=== PATIENT | male | born 1950 | race Caucasian/White ===

== ENCOUNTER 2024-06-13 07:26 | Inpatient (IN) | payer OTHER ==
[~2024-06-13] VITALS: Ht 172.7 cm; Wt 61.8 kg
[2024-06-13] VITALS (22 sets, daily range): BP systolic 92–177; BP diastolic 61–99; TEMP 97.9–99.6; O2SAT 97–100
[2024-06-13 08:29] LABS: BASOPHILS # (AUTO) 0.1 K/uL (0.0-0.2); BASOPHILS % (AUTO) 0.6 % (0.0-2.0); EOSINOPHILS % (AUTO) 0.1 % (0.0-6.0); HEMATOCRIT 41 % (39-51); HEMOGLOBIN 13.9 g/dL (13.5-17.5); LYMPHOCYTES % (AUTO) 9.5 % (20.0-44.0); MEAN CORPUSCULAR HEMOGLOBIN 32 PG (26.0-33.0); MEAN CORPUSCULAR HGB CONC 34 g/dl (31.0-36.0); MEAN CORPUSCULAR VOLUME 95 fL (80-96); MONOCYTES # (AUTO) 0.6 K/uL (0.1-1.30); MONOCYTES % (AUTO) 5.8 % (2.0-12.0); PLATELET COUNT (AUTO) 240 K/uL (150-450); RED BLOOD CELL COUNT(AUTO) 4.33 MIL/uL (4.5-6.0); WHITE BLOOD COUNT (AUTO) 10.8 K/uL (4.3-11.0)
[2024-06-13] MEDS: hydrALAZINE HCL IV 20 MG VIAL IV ONE ×2 (08:29→09:01)
[2024-06-13 08:45] LABS: CARBON DIOXIDE 27 mmol/L (21-32); CHLORIDE 110 mmol/L (98-107); CREATININE 2.9 mg/dL (0.6-1.3); GLUCOSE 123 mg/dL (74-106); POTASSIUM 3.8 mmol/L (3.5-5.1); SODIUM SERUM 150 mmol/L (136-145); UREA NITROGEN, BLOOD 41 mg/dL (7-18)
[2024-06-13 08:57] LABS: NT-PRO BNP 11038 pg/mL (0-125)
[2024-06-13] MEDS ORDERED: NICARDIPINE HCL 40 MG in IV NS 0.9% 184 ML IV PRN (09:00)
[2024-06-13] MEDS ORDERED: ENOXAPARIN SODIUM 80 MG/0.8 ML DISP.SYRIN SQ ONE (09:03)
[2024-06-13] MEDS: ENOXAPARIN SODIUM 60 MG/0.6 ML DISP.SYRIN SQ ONE (09:05)
[2024-06-13] MEDS: NICARDIPINE HCL 40 MG in IV NS 0.9% 184 ML IV PRN (09:45)
[2024-06-13] MEDS ORDERED: HYDR100T27 GT (10:59)
[2024-06-13] MEDS ORDERED: CHOL100043 GT (10:59)
[2024-06-13] MEDS ORDERED: TRIA60LO8 TP (10:59)
[2024-06-13] MEDS ORDERED: CLON0.2T GT (10:59)
[2024-06-13] MEDS ORDERED: ACET-637 GT (10:59)
[2024-06-13] MEDS ORDERED: LABE200T5 GT (10:59)
[2024-06-13] MEDS ORDERED: MINO2.5T2 GT (10:59)
[2024-06-13] MEDS ORDERED: MAGN400O6 GT (10:59)
[2024-06-13] MEDS ORDERED: AMLO-213 GT (10:59)
[2024-06-13] MEDS ORDERED: FAMO20TA8 GT (10:59)
[2024-06-13] MEDS ORDERED: DOCU-141 GT (10:59)
[2024-06-13] MEDS ORDERED: BISA10SU11 RC (10:59)
[2024-06-13] MEDS ORDERED: NYST30CR2 TP (10:59)
[2024-06-13] MEDS ORDERED: CRAN300T GT (10:59)
[2024-06-13] MEDS ORDERED: ONDA-97 GT (10:59)
[2024-06-13] MEDS ORDERED: NA P133E RC (10:59)
[2024-06-13] MEDS ORDERED: LEVE500S9 GT (10:59)
[2024-06-13] MEDS ORDERED: NUT.237L67 GT (10:59)
[2024-06-13] MEDS ORDERED: ACET325T53 GT (10:59)
[2024-06-13] MEDS ORDERED: CLON0.1T GT (10:59)
[2024-06-13] MEDS ORDERED: MAGNESIUM HYDROXIDE 30 ML UDC PO PRN (11:00)
[2024-06-13] MEDS ORDERED: ENOXAPARIN SODIUM 30 MG/0.3 ML DISP.SYRIN SQ SCH (11:00)
[2024-06-13] MEDS ORDERED: ZOLPIDEM TARTRATE 5 MG TABLET PO PRN (11:00)
[2024-06-13] MEDS ORDERED: Z GUARD REMEDY 4 OZ OINT TP PRN (11:00)
[2024-06-13] MEDS ORDERED: MAG HYDROX/AL HYDROX/SIMETH 30 ML UDC PO PRN (11:00)
[2024-06-13] MEDS ORDERED: ONDANSETRON HCL/PF 4 MG/2 ML VIAL IVP PRN (11:00)
[2024-06-13] MEDS ORDERED: HYDROCODONE/APAP 5/325MG TABLET GT PRN (11:00)
[2024-06-13] MEDS ORDERED: ACETAMINOPHEN 325 MG TABLET PO PRN (11:00)
[2024-06-13] MEDS: MINOXIDIL (2.5MG) 2.5 MG TABLET GT SCH (12:00)
[2024-06-13] MEDS ORDERED: NA PHOS,M-B/NA PHOS,DI-BA 1 EA ENEMA RC PRN (12:00)
[2024-06-13] MEDS ORDERED: ACETAMINOPHEN ES 500 MG TABLET GT PRN (12:00)
[2024-06-13] MEDS ORDERED: BISACODYL SUPP (10 MG) 10 MG/SUPP.RECT SUPP.RECT RC PRN (12:00)
[2024-06-13] MEDS ORDERED: ACETAMINOPHEN 325 MG TABLET MC PRN (12:00)
[2024-06-13] MEDS: AMLODIPINE BESYLATE 10 MG TABLET GT SCH (12:00)
[2024-06-13] MEDS: hydrALAZINE HCL 50 MG TABLET GT SCH (13:00)
[2024-06-13] MEDS: LABETALOL HCL (100MG) 100 MG TABLET PO SCH (13:00)
[2024-06-13] MEDS: CLONIDINE HCL 0.1 MG TABLET GT SCH (13:00)
[2024-06-13] MEDS ORDERED: NEPRO VAN 237 ML CAN GT SCH (13:00)
[2024-06-13] MEDS: NEPRO VAN 237 ML CAN PO SCH (17:00)
[2024-06-13] MEDS: CHOLECALCIFEROL 1,000 UNIT TABLET (VIT D3) GT SCH (17:09)
[2024-06-13] MEDS: DOCUSATE SODIUM 100 MG CAPSULE PO SCH (17:09)
[2024-06-13] MEDS: CLONIDINE HCL 0.1 MG TABLET GT PRN (17:10)
[2024-06-13] MEDS: NEPRO 1,000 ML BOTTLE GT PRN (19:19)
[2024-06-13] MEDS: LEVETIRACETAM (250 MG) 250 MG TABLET GT SCH (21:03)
[2024-06-13] MEDS: TRIAMCINOLONE 0.1% LOTION 60 ML BOTTLE TP SCH (21:34)
[2024-06-13] MEDS: NYSTATIN CREAM 15 GM TUBE TP SCH (21:34)
[2024-06-14] VITALS: BP 133/81; TEMP 98.6; O2SAT 98
[2024-06-14 04:00] VITALS: BP 148/88; TEMP 98.4; O2SAT 99
[2024-06-14 07:14] LABS: BASOPHILS % (AUTO) 0.3 % (0.0-2.0); EOSINOPHILS # (AUTO) 0.3 K/uL (0.0-0.7); EOSINOPHILS % (AUTO) 3.3 % (0.0-6.0); HEMATOCRIT 33 % (39-51); HEMOGLOBIN 11.3 g/dL (13.5-17.5); LYMPHOCYTES # (AUTO) 1.3 K/uL (0.8-4.8); LYMPHOCYTES % (AUTO) 14.8 % (20.0-44.0); MEAN CORPUSCULAR HEMOGLOBIN 32 PG (26.0-33.0); MEAN CORPUSCULAR HGB CONC 34 g/dl (31.0-36.0); MEAN CORPUSCULAR VOLUME 95 fL (80-96); MONOCYTES # (AUTO) 0.6 K/uL (0.1-1.30); MONOCYTES % (AUTO) 7.1 % (2.0-12.0); NEUTROPHILS # (AUTO) 6.4 K/uL (1.8-8.9); NEUTROPHILS % (AUTO) 74.5 % (43.0-81.0); PLATELET COUNT (AUTO) 181 K/uL (150-450); RED BLOOD CELL COUNT(AUTO) 3.49 MIL/uL (4.5-6.0); RED CELL DISTRIBUTION WIDTH 13.8 % (11.5-15.0); WHITE BLOOD COUNT (AUTO) 8.6 K/uL (4.3-11.0)
[2024-06-14 07:24] LABS: CALCIUM, SERUM 8.4 mg/dL (8.5-10.1); CREATININE 2.8 mg/dL (0.6-1.3); MAGNESIUM 2.6 mg/dL (1.8-2.4); PHOSPHORUS 3.5 mg/dL (2.5-4.9); POTASSIUM 3.4 mmol/L (3.5-5.1)
[2024-06-14 08:00] VITALS: BP 166/91; TEMP 98.6; O2SAT 99
[2024-06-14] MEDS: FREE WATER VIA TUBE FEEDING GT SCH (08:20)
[2024-06-14] MEDS: ENOXAPARIN SODIUM 30 MG/0.3 ML DISP.SYRIN SQ SCH (08:31)
[2024-06-14] MEDS: hydrALAZINE HCL 50 MG TABLET PO SCH (09:43)
[2024-06-14 09:49] LABS: IRON, SERUM 39 ug/dl (50-175); TOTAL IRON BINDING CAPACITY 183 ug/dl (250-450)
[2024-06-14 10:06] LABS: FERRITIN 97 ng/mL (8-388)
[2024-06-14] MEDS: NITROGLYCERIN 30 GM TUBE TP SCH (10:06)
[2024-06-14 16:00] VITALS: BP 150/86; TEMP 98.2; O2SAT 99
[2024-06-14] MEDS: POTASSIUM CHLORIDE 20 MEQ POWDER PACKET GT ONE (16:15)
[2024-06-15 01:38] VITALS: BP 174/99; TEMP 99.3; O2SAT 99
[2024-06-15 07:19] LABS: BASOPHILS % (AUTO) 0.3 % (0.0-2.0); EOSINOPHILS # (AUTO) 0.3 K/uL (0.0-0.7); EOSINOPHILS % (AUTO) 3.3 % (0.0-6.0); HEMATOCRIT 35 % (39-51); HEMOGLOBIN 12.1 g/dL (13.5-17.5); LYMPHOCYTES # (AUTO) 1.2 K/uL (0.8-4.8); LYMPHOCYTES % (AUTO) 11.3 % (20.0-44.0); MEAN CORPUSCULAR HEMOGLOBIN 33 PG (26.0-33.0); MEAN CORPUSCULAR HGB CONC 35 g/dl (31.0-36.0); MEAN CORPUSCULAR VOLUME 95 fL (80-96); MONOCYTES # (AUTO) 0.8 K/uL (0.1-1.30); MONOCYTES % (AUTO) 7.6 % (2.0-12.0); NEUTROPHILS # (AUTO) 7.9 K/uL (1.8-8.9); NEUTROPHILS % (AUTO) 77.5 % (43.0-81.0); PLATELET COUNT (AUTO) 199 K/uL (150-450); RED BLOOD CELL COUNT(AUTO) 3.66 MIL/uL (4.5-6.0); WHITE BLOOD COUNT (AUTO) 10.2 K/uL (4.3-11.0)
[2024-06-15 08:08] LABS: THYROID STIMULATING HORMONE 1.72 uIU/mL (0.358-3.74)
[2024-06-15 08:21] LABS: CALCIUM, SERUM 8.5 mg/dL (8.5-10.1); CREATININE 2.8 mg/dL (0.6-1.3); POTASSIUM 3.3 mmol/L (3.5-5.1)
[2024-06-15 08:24] VITALS: BP 148/88; TEMP 98.4; O2SAT 99
[2024-06-15] MEDS: NIFEdipine XL (30MG) 30 MG TAB PO SCH (09:52)
[2024-06-15] MEDS: POTASSIUM CHLORIDE 20 MEQ TAB.PRT.SR PO ONE (16:05)
[2024-06-15 16:11] VITALS: BP 132/91; TEMP 98.6; O2SAT 99
[2024-06-16 04:00] VITALS: BP 174/104; TEMP 98.4; O2SAT 99
[2024-06-16 06:17] VITALS: BP 163/92; TEMP 98.4; O2SAT 99
[2024-06-16 07:30] LABS: POTASSIUM 3.7 mmol/L (3.5-5.1)
[2024-06-16 07:57] LABS: CALCIUM, SERUM 8.7 mg/dL (8.5-10.1); CREATININE 2.8 mg/dL (0.6-1.3)
[2024-06-16 08:00] VITALS: BP 164/103; TEMP 98.1; O2SAT 99
[2024-06-16 08:06] LABS: CORTISOL SERUM 29.6 ug/dL (6.2-19.4)
[2024-06-16] MEDS: FREE WATER VIA TUBE FEEDING GT SCH (09:32)
[2024-06-16 12:00] VITALS: BP 110/61; TEMP 97.5; O2SAT 99
[2024-06-16 16:00] VITALS: BP 131/78; TEMP 97.9; O2SAT 100
[2024-06-16 20:00] VITALS: BP 137/69; TEMP 98.9; O2SAT 99
[2024-06-17 04:00] VITALS: BP 174/94; TEMP 98.6; O2SAT 99
[2024-06-17 06:41] LABS: CALCIUM, SERUM 8.6 mg/dL (8.5-10.1); CARBON DIOXIDE 27 mmol/L (21-32); CHLORIDE 116 mmol/L (98-107); CREATININE 2.7 mg/dL (0.6-1.3); GLUCOSE 115 mg/dL (74-106); POTASSIUM 3.5 mmol/L (3.5-5.1); SODIUM SERUM 153 mmol/L (136-145); UREA NITROGEN, BLOOD 45 mg/dL (7-18)
[2024-06-17] MEDS: ISOSORBIDE DINITRATE (20MG) 20 MG TABLET PO SCH (09:16)
[2024-06-17] MEDS: METOPROLOL TARTRATE 50 MG TABLET PO SCH (09:17)
[2024-06-17 13:21] VITALS: BP 138/74
[2024-06-17] MEDS ORDERED: TRIAMCINOLONE 0.025% ACETONIDE 60 ML BOTTLE TP SCH (21:00)
[2024-06-18 17:06] LABS: RENIN, PLASMA 0.526 ng/mL/hr (.)
[2024-06-19 11:07] LABS: ALDOSTERONE,LCMS 4.2 ng/dL (.)
== END 2024-06-17 14:37 | DRG 280 ==
LOC: ER 07:36 → ICU 11:53 → TELE-TD 18:37 → MEDSG1 06-14 09:37
PROVIDERS: ADMIT Nurse Practitioner Acute Care
DX: I16.1 Hypertensive emergency (principal); N17.0 Acute kidney failure with tubular necrosis; I21.A1 Myocardial infarction type 2; D68.59 Other primary thrombophilia; E87.0 Hyperosmolality and hypernatremia; G93.49 Other encephalopathy; I50.30 Unspecified diastolic (congestive) heart failure; F03.93 Unspecified dementia, unspecified severity, with mood disturbance; I13.0 Hypertensive heart and chronic kidney disease with heart failure and stage 1 through stage 4 chronic kidney disease, or unspecified chronic kidney disease; N18.9 Chronic kidney disease, unspecified; E78.5 Hyperlipidemia, unspecified; R13.10 Dysphagia, unspecified; Z93.1 Gastrostomy status; G40.909 Epilepsy, unspecified, not intractable, without status epilepticus; E11.22 Type 2 diabetes mellitus with diabetic chronic kidney disease; F32.9 Major depressive disorder, single episode, unspecified; Z74.09 Other reduced mobility; Z66 Do not resuscitate
CPT/HCPCS: 36415; 70450-TC; 71045-TC; 76770-TC; 80048-TC; 80061-TC; 82088; 82533; 82728-TC; 83540-TC; 83735-TC; 83880; 84100-TC; 84244; 84443-TC; 84484-TC; 85025-TC; 87081-TC; 93307-TC; A6403; G0378; J0360; J1650; J7050

== ENCOUNTER 2024-09-12 15:08 | Inpatient (IN) | payer MEDICAID, OTHER ==
[2024-09-12] VITALS (7 sets, daily range): BP systolic 143–232; BP diastolic 88–120; TEMP 97.7; O2SAT 82–100
[~2024-09-12] VITALS: Ht 180.3 cm; Wt 70.3 kg
[~2024-09-12 15:08] MED LIST: ACET-637 GT; ACET325T53 GT; AMLO-213 GT; BISA10SU11 RC; CHOL100043 GT; CLON0.1T GT; CLON0.2T GT; CRAN300T GT; DOCU-141 GT; FAMO20TA8 GT; HYDR100T27 GT; LABE200T5 GT; LEVE500S9 GT; MAGN400O6 GT; MINO2.5T2 GT; NA P133E RC; NUT.237L67 GT; NYST30CR2 TP; ONDA-97 GT; TRIA60LO8 TP
[2024-09-12] MEDS: CEFEPIME 1 GM in IV D5W 50 ML IV ONE (15:30)
[2024-09-12] MEDS: IV NS 0.9% 1,000 ML BAG IV ONE (15:30)
[2024-09-12] MEDS ORDERED: VANCOMYCIN 1 GM in IV D5W 250 ML IV ONE (15:30)
[2024-09-12 15:39] LABS: BASOPHILS % (AUTO) 0.2 % (0.0-2.0); EOSINOPHILS % (AUTO) 0.1 % (0.0-6.0); HEMATOCRIT 34 % (39-51); HEMOGLOBIN 11.5 g/dL (13.5-17.5); LYMPHOCYTES # (AUTO) 1.4 K/uL (0.8-4.8); MEAN CORPUSCULAR HEMOGLOBIN 32 PG (26.0-33.0); MEAN CORPUSCULAR HGB CONC 34 g/dl (31.0-36.0); MEAN CORPUSCULAR VOLUME 93 fL (80-96); MONOCYTES # (AUTO) 0.9 K/uL (0.1-1.30); MONOCYTES % (AUTO) 6.9 % (2.0-12.0); NEUTROPHILS # (AUTO) 11.4 K/uL (1.8-8.9); NEUTROPHILS % (AUTO) 82.8 % (43.0-81.0); PLATELET COUNT (AUTO) 323 K/uL (150-450); RED BLOOD CELL COUNT(AUTO) 3.63 MIL/uL (4.5-6.0); WHITE BLOOD COUNT (AUTO) 13.8 K/uL (4.3-11.0)
[2024-09-12 15:44] LABS: CALCIUM, SERUM 9.3 mg/dL (8.5-10.1); CARBON DIOXIDE 25 mmol/L (21-32); CHLORIDE 105 mmol/L (98-107); CREATININE 2.4 mg/dL (0.6-1.3); GLUCOSE 129 mg/dL (74-106); POTASSIUM 3.9 mmol/L (3.5-5.1); SODIUM SERUM 143 mmol/L (136-145); UREA NITROGEN, BLOOD 41 mg/dL (7-18)
[2024-09-12 15:54] LABS: LACTIC ACID 1.3 mmol/L (0.4-2.0)
[2024-09-12 15:59] LABS: ALANINE AMINOTRANSFERASE 34 U/L (12-78); ALBUMIN 3.8 g/dL (3.4-5.0); ALKALINE PHOSPHATASE 134 U/L (46-116); ASPARTATE AMINOTRANSFERASE 61 U/L (15-37); BILIRUBIN,DIRECT 0.1 mg/dL (0.0-0.2); BILIRUBIN,TOTAL 0.4 mg/dL (0.2-1.0); TOTAL PROTEIN, SERUM 7.9 g/dL (6.4-8.2)
[2024-09-12 16:12] LABS: INR 0.99 (0.91-1.10); PARTIAL THROMBOPLASTIN TIME 34.2 SEC (24.3-34.3); PROTHROMBIN TIME 10.5 SECS (9.2-11.1)
[2024-09-12] MEDS ORDERED: NEPRO 1.8 GT (16:15)
[2024-09-12] MEDS ORDERED: PRED20TA GT (16:15)
[2024-09-12] MEDS ORDERED: PERM60CR6 TP (16:15)
[2024-09-12] MEDS ORDERED: METO100T14 GT (16:15)
[2024-09-12] MEDS: VANCOMYCIN 1 GM in IV NS 0.9% 250 ML IV ONE (16:30)
[2024-09-12 16:54] LABS: APPEARANCE,URINE CLEAR (CLEAR); BILIRUBIN,URINE NEGATIVE (NEGATIVE); BLOOD, URINE TRACE-INTA Ery/uL (NEGATIVE); COLOR,URINE YELLOW (YELLOW); KETONES,URINE NEGATIVE (NEGATIVE); LEUKOCYTE ESTERASE ,URINE NEGATIVE (NEGATIVE); NITRITE, URINE NEGATIVE (NEGATIVE); PROTEIN,URINE 3+ mg/dl (NEGATIVE); UGLUCOSE NEGATIVE (NEGATIVE); UROBILINOGEN,URINE 0.2 EU/dL (0.2)
[2024-09-12 17:00] LABS: ADD URINE CULTURE YES; BACTERIA,URINE 2+ /HPF (None Seen); SQUAMOUS EPITHELIAL CELL,UR 0-2 /HPF (None Seen)
[2024-09-12] MEDS: ENOXAPARIN SODIUM 80 MG/0.8 ML DISP.SYRIN SQ ONE (17:00)
[2024-09-12] MEDS ORDERED: Z GUARD REMEDY 4 OZ OINT TP PRN (18:00)
[2024-09-12] MEDS ORDERED: MAGNESIUM HYDROXIDE 30 ML UDC PO PRN (18:00)
[2024-09-12] MEDS ORDERED: ACETAMINOPHEN 650 MG/SUPP.RECT RC PRN (18:00)
[2024-09-12] MEDS ORDERED: ONDANSETRON HCL/PF 4 MG/2 ML VIAL IVP PRN (18:00)
[2024-09-12] MEDS: VANCOMYCIN 750 MG in IV D5W 250 ML IV ONE (19:00)
[2024-09-12] MEDS ORDERED: ACETAMINOPHEN ES 500 MG TABLET GT PRN (21:30)
[2024-09-12] MEDS ORDERED: ACETAMINOPHEN 325 MG TABLET MC PRN (21:30)
[2024-09-12] MEDS: hydrALAZINE HCL IV 20 MG VIAL IV ONE (21:33)
[2024-09-12] MEDS: METOPROLOL TARTRATE 50 MG TABLET GT SCH (22:27)
[2024-09-12] MEDS: MINOXIDIL (2.5MG) 2.5 MG TABLET GT SCH (22:28)
[2024-09-12] MEDS: AMLODIPINE BESYLATE 10 MG TABLET GT SCH (22:28)
[2024-09-12] MEDS: NEPRO 1,000 ML BOTTLE GT PRN (22:52)
[2024-09-13] VITALS (30 sets, daily range): BP systolic 99–137; BP diastolic 57–84; TEMP 97.7–98.6; O2SAT 93–100
[2024-09-13] MEDS: hydrALAZINE HCL 50 MG TABLET GT SCH (04:24)
[2024-09-13 04:50] LABS: BASOPHILS # (AUTO) 0.1 K/uL (0.0-0.2); BASOPHILS % (AUTO) 0.6 % (0.0-2.0); EOSINOPHILS % (AUTO) 0.1 % (0.0-6.0); HEMATOCRIT 30 % (39-51); HEMOGLOBIN 9.7 g/dL (13.5-17.5); LYMPHOCYTES # (AUTO) 0.6 K/uL (0.8-4.8); LYMPHOCYTES % (AUTO) 4.9 % (20.0-44.0); MEAN CORPUSCULAR HEMOGLOBIN 30 PG (26.0-33.0); MEAN CORPUSCULAR HGB CONC 32 g/dl (31.0-36.0); MEAN CORPUSCULAR VOLUME 95 fL (80-96); MONOCYTES # (AUTO) 1.3 K/uL (0.1-1.30); MONOCYTES % (AUTO) 10.2 % (2.0-12.0); NEUTROPHILS # (AUTO) 10.9 K/uL (1.8-8.9); NEUTROPHILS % (AUTO) 84.2 % (43.0-81.0); PLATELET COUNT (AUTO) 259 K/uL (150-450); RED BLOOD CELL COUNT(AUTO) 3.21 MIL/uL (4.5-6.0); RED CELL DISTRIBUTION WIDTH 15.1 % (11.5-15.0); WHITE BLOOD COUNT (AUTO) 12.9 K/uL (4.3-11.0)
[2024-09-13 05:15] LABS: CALCIUM, SERUM 8.5 mg/dL (8.5-10.1); MAGNESIUM 2.4 mg/dL (1.8-2.4); PHOSPHORUS 4.3 mg/dL (2.5-4.9); POTASSIUM 3.9 mmol/L (3.5-5.1)
[2024-09-13] MEDS ORDERED: METOPROLOL TARTRATE 50 MG TABLET GT SCH (09:00)
[2024-09-13] MEDS: PANTOPRAZOLE 40 MG VIAL IV SCH (09:00)
[2024-09-13] MEDS ORDERED: AMLODIPINE BESYLATE 10 MG TABLET GT SCH (09:00)
[2024-09-13] MEDS: LEVETIRACETAM SOL (5 ML) 100 MG/ML UDC GT SCH (09:01)
[2024-09-13] MEDS: CHOLECALCIFEROL 1,000 UNIT TABLET (VIT D3) GT SCH (09:02)
[2024-09-13 09:48] LABS: THYROID STIMULATING HORMONE 1.79 uIU/mL (0.358-3.74)
[2024-09-13] MEDS: CEFEPIME 2 GM in IV D5W 100 ML IV SCH (10:39)
[2024-09-13 11:35] LABS: ABG BASE EXCESS -4.8 mmol/L (-2.0-3.0); ABG OXYGEN SATURATION 98.9 % (94.0-98.0); ABG PCO2 33.1 mmHg (35.0-48.0); ABG PH 7.388 (7.350-7.450); ABG PO2 251.5 mmHg (83.0-108.0); ABG TOTAL HEMOGLOBIN 10.4 G/dL (13.5-17.5); COHb 0.1 % (0.5-1.5); MetHb 0.3 % (0.0-1.5); O2Hb 98.5 % (94.0-97.0); SITE, ABG RIGHT RADIAL
[2024-09-13] MEDS: IPRATROPIUM NEB FS 0.5 MG/2.5 ML AMPUL.NEB NEB SCH (13:02)
[2024-09-13] MEDS: ALBUTEROL HALF STRENGTH 1.25 MG/3 ML VIAL.NEB NEB SCH (13:03)
[2024-09-13] MEDS: SOD FERRIC GLUC 125 MG in IV NS 0.9% 100 ML IV SCH (14:34)
[2024-09-13] MEDS ORDERED: CEFEPIME 2 GM in IV D5W 100 ML IV SCH (15:00)
[2024-09-13] MEDS ORDERED: VANCOMYCIN 1 GM in IV D5W 250ml IV SCH (18:00)
[2024-09-13] MEDS ORDERED: VANCOMYCIN 750 MG in IV D5W 250 ML IV SCH (18:00)
[2024-09-13] MEDS: VANCOMYCIN 1 GM in IV D5W 250ml IV SCH (18:36)
[2024-09-14] VITALS (27 sets, daily range): BP systolic 106–158; BP diastolic 59–83; TEMP 97.7–98.6; O2SAT 90–100
[2024-09-14 04:45] LABS: BASOPHILS % (AUTO) 0.4 % (0.0-2.0); EOSINOPHILS # (AUTO) 0.4 K/uL (0.0-0.7); EOSINOPHILS % (AUTO) 3.6 % (0.0-6.0); HEMATOCRIT 30 % (39-51); LYMPHOCYTES # (AUTO) 0.8 K/uL (0.8-4.8); LYMPHOCYTES % (AUTO) 7.6 % (20.0-44.0); MEAN CORPUSCULAR HEMOGLOBIN 31 PG (26.0-33.0); MEAN CORPUSCULAR HGB CONC 34 g/dl (31.0-36.0); MEAN CORPUSCULAR VOLUME 94 fL (80-96); MONOCYTES # (AUTO) 0.9 K/uL (0.1-1.30); MONOCYTES % (AUTO) 8.1 % (2.0-12.0); NEUTROPHILS # (AUTO) 8.8 K/uL (1.8-8.9); NEUTROPHILS % (AUTO) 80.3 % (43.0-81.0); PLATELET COUNT (AUTO) 240 K/uL (150-450); RED BLOOD CELL COUNT(AUTO) 3.18 MIL/uL (4.5-6.0); RED CELL DISTRIBUTION WIDTH 14.8 % (11.5-15.0)
[2024-09-14 05:07] LABS: ALBUMIN 3.3 g/dL (3.4-5.0); BILIRUBIN,TOTAL 0.4 mg/dL (0.2-1.0); CALCIUM, SERUM 9.1 mg/dL (8.5-10.1); CREATININE 2.3 mg/dL (0.6-1.3); MAGNESIUM 2.7 mg/dL (1.8-2.4); PHOSPHORUS 3.9 mg/dL (2.5-4.9); POTASSIUM 3.5 mmol/L (3.5-5.1); TOTAL PROTEIN, SERUM 6.9 g/dL (6.4-8.2)
[2024-09-14] MEDS: BUMETANIDE INJ 8 MG in IV NS 0.9% 48 ML IV ONE (08:43)
[2024-09-14] MEDS: CEFEPIME 2 GM in IV D5W 100 ML IV SCH (21:05)
[2024-09-15] VITALS (9 sets, daily range): BP systolic 108–140; BP diastolic 58–67; TEMP 98.1–98.8; O2SAT 95–100
[2024-09-15 06:07] LABS: PTH, INTACT 66 pg/mL (15-65)
[2024-09-15 08:05] LABS: BASOPHILS # (AUTO) 0.1 K/uL (0.0-0.2); BASOPHILS % (AUTO) 0.6 % (0.0-2.0); EOSINOPHILS # (AUTO) 0.6 K/uL (0.0-0.7); EOSINOPHILS % (AUTO) 6.7 % (0.0-6.0); HEMATOCRIT 27 % (39-51); LYMPHOCYTES # (AUTO) 0.9 K/uL (0.8-4.8); MEAN CORPUSCULAR HEMOGLOBIN 31 PG (26.0-33.0); MEAN CORPUSCULAR HGB CONC 34 g/dl (31.0-36.0); MEAN CORPUSCULAR VOLUME 93 fL (80-96); MONOCYTES # (AUTO) 0.9 K/uL (0.1-1.30); MONOCYTES % (AUTO) 9.6 % (2.0-12.0); NEUTROPHILS # (AUTO) 6.8 K/uL (1.8-8.9); NEUTROPHILS % (AUTO) 73.1 % (43.0-81.0); PLATELET COUNT (AUTO) 230 K/uL (150-450); RED BLOOD CELL COUNT(AUTO) 2.87 MIL/uL (4.5-6.0); RED CELL DISTRIBUTION WIDTH 15.5 % (11.5-15.0); WHITE BLOOD COUNT (AUTO) 9.3 K/uL (4.3-11.0)
[2024-09-15 08:20] LABS: ALBUMIN 2.8 g/dL (3.4-5.0); BILIRUBIN,TOTAL 0.4 mg/dL (0.2-1.0); CREATININE 2.6 mg/dL (0.6-1.3); MAGNESIUM 2.6 mg/dL (1.8-2.4); PHOSPHORUS 4.3 mg/dL (2.5-4.9); POTASSIUM 3.2 mmol/L (3.5-5.1); TOTAL PROTEIN, SERUM 6.2 g/dL (6.4-8.2)
[2024-09-15] MEDS ORDERED: POTASSIUM CL. PREMIX PERIPHER. 50 ML IV SCH (10:30)
[2024-09-15] MEDS ORDERED: POTASSIUM CHLORIDE 20 MEQ POWDER PACKET GT SCH (10:30)
[2024-09-15] MEDS ORDERED: FERR220S2 PO (13:13)
[2024-09-15] MEDS ORDERED: IPRA3AMP23 IH (13:13)
[2024-09-15] MEDS ORDERED: CEFE2FRO IV (13:13)
[2024-09-15] MEDS: POTASSIUM CHLORIDE 20 MEQ POWDER PACKET GT ONE (13:32)
[2024-09-18 06:12] LABS: *SPE A/G RATIO 0.8 (0.7-1.7); *SPE ALBUMIN 2.8 g/dL (2.9-4.4); *SPE ALPHA-1-GLOBULIN 0.4 g/dL (0.0-0.4); *SPE ALPHA-2-GLOBULIN 0.7 g/dL (0.4-1.0); *SPE GLOBULIN, TOTAL 3.5 g/dL (2.2-3.9); *SPE M-SPIKE Not Observed g/dL (Not Observed); *SPE PROTEIN TOTAL 6.3 g/dL (6.0-8.5); *SPEGAMMA GLOBULIN 1.4 g/dL (0.4-1.8)
== END 2024-09-15 17:43 | DRG 871 ==
LOC: ER 15:13 → ICU 19:29 → TELE-TD 09-14 10:43 → TELE1 09-15 09:27
PROVIDERS: ADMIT Nurse Practitioner Family; ATTEND Nurse Practitioner Family
PROC: 5A09357 Assistance with Respiratory Ventilation, Less than 24 Consecutive Hours, Continuous Positive Airway Pressure (ICD-10-PCS; principal; 2024-09-12)
DX: A41.9 Sepsis, unspecified organism (principal); G93.41 Metabolic encephalopathy; J96.01 Acute respiratory failure with hypoxia; J69.0 Pneumonitis due to inhalation of food and vomit; I21.A1 Myocardial infarction type 2; I16.1 Hypertensive emergency; N17.9 Acute kidney failure, unspecified; I13.0 Hypertensive heart and chronic kidney disease with heart failure and stage 1 through stage 4 chronic kidney disease, or unspecified chronic kidney disease; E87.0 Hyperosmolality and hypernatremia; I69.351 Hemiplegia and hemiparesis following cerebral infarction affecting right dominant side; N39.0 Urinary tract infection, site not specified; J44.0 Chronic obstructive pulmonary disease with (acute) lower respiratory infection; N18.9 Chronic kidney disease, unspecified; D64.9 Anemia, unspecified; E78.5 Hyperlipidemia, unspecified; Z93.1 Gastrostomy status; E83.9 Disorder of mineral metabolism, unspecified; R13.10 Dysphagia, unspecified; Z66 Do not resuscitate; G40.909 Epilepsy, unspecified, not intractable, without status epilepticus; E11.22 Type 2 diabetes mellitus with diabetic chronic kidney disease; B86 Scabies; F03.90 Unspecified dementia, unspecified severity, without behavioral disturbance, psychotic disturbance, mood disturbance, and anxiety; I50.9 Heart failure, unspecified; K21.9 Gastro-esophageal reflux disease without esophagitis; Z89.222 Acquired absence of left upper limb above elbow; B96.20 Unspecified Escherichia coli [E. coli] as the cause of diseases classified elsewhere
CPT/HCPCS: 36415; 71045-TC; 76770-TC; 80048-TC; 80053-TC; 80061-TC; 80076-TC; 80202-TC; 81001; 82550-TC; 82728-TC; 82803-TC; 83540-TC; 83605-TC; 83735-TC; 83880; 83970; 84100-TC; 84155; 84165; 84439-TC; 84443-TC; 84484-TC; 85025-TC; 85730-TC; 87040-TC; 87081-TC; 87086-TC; 87186-TC; 92526; 92611-TC; 93307-TC; 93970-TC; 94799-TC; A4217; A4223; G0378; J0360; J0692; J1650; J1953; J2470; J2916; J3370; J3371; J3490; J7030; J7050; J7060